=== PATIENT | female | born 1965 | race Caucasian/White ===

== ENCOUNTER → 2017-08-04 | Outpatient (CLI) | payer BC ==
--- NOTE | 2017-08-05 11:10 | MM ---
Reason for exam: screening (asymptomatic). Last mammogram was performed 1 year ago. History: Patient is postmenopausal, history of other cancer, and is nulliparous. Family history of breast cancer in maternal grandmother and breast cancer in maternal aunt. Took hormonal contraceptives for 14 years 5 months beginning at age 33. Physical Findings: A clinical breast exam by your physician is recommended on an annual basis and results should be correlated with mammographic findings. MG Screening Mammo w CAD Bilateral CC and MLO view(s) were taken. Prior study comparison: August 02, 2016, bilateral MG screening mammo w CAD. July 31, 2015, bilateral MG screening mammo w CAD. The breast tissue is heterogeneously dense. This may lower the sensitivity of mammography. Finding: There are typically benign calcifications in the left breast. No significant changes in finding since August 02, 2016 and July 31, 2015. ASSESSMENT: Benign, BI-RAD 2 RECOMMENDATION: Routine screening mammogram of both breasts in 1 year.
== END | disposition home or self-care (01) ==
LOC: RADMAMWWP 08:15
PROVIDERS: ATTEND Obstetrics & Gynecology
DX: Z12.31 Encounter for screening mammogram for malignant neoplasm of breast (principal); Z80.3 Family history of malignant neoplasm of breast

== ENCOUNTER → 2018-08-18 | Outpatient (CLI) | payer BC ==
--- NOTE | 2018-08-18 12:09 | MM ---
Reason for exam: screening (asymptomatic). Last mammogram was performed 1 year ago. History: Patient is postmenopausal, history of other cancer, and is nulliparous. Family history of breast cancer in maternal grandmother and breast cancer in maternal aunt. Took hormonal contraceptives for 14 years 5 months beginning at age 33. Physical Findings: A clinical breast exam by your physician is recommended on an annual basis and results should be correlated with mammographic findings. MG Screening Mammo w CAD Bilateral CC and MLO view(s) were taken. XCCL view(s) were taken of the left breast. Prior study comparison: August 04, 2017, bilateral MG screening mammo w CAD. August 02, 2016, bilateral MG screening mammo w CAD. The breast tissue is heterogeneously dense. This may lower the sensitivity of mammography. Benign calcifications in the left breast. No significant changes when compared with prior studies. ASSESSMENT: Benign, BI-RAD 2 RECOMMENDATION: Routine screening mammogram of both breasts in 1 year.
== END | disposition home or self-care (01) ==
LOC: RADMAMWWP 07:07
PROVIDERS: ATTEND Obstetrics & Gynecology
DX: Z12.31 Encounter for screening mammogram for malignant neoplasm of breast (principal)
CPT/HCPCS: 77067

== ENCOUNTER → 2019-09-18 | Outpatient (CLI) | payer OTHER ==
--- NOTE | 2019-09-19 15:02 | MM ---
Reason for exam: screening (asymptomatic). Last mammogram was performed 1 year and 1 month ago. History: Patient is postmenopausal, history of other cancer, and is nulliparous. Family history of breast cancer in maternal grandmother and breast cancer in maternal aunt. Took hormonal contraceptives for 14 years 5 months beginning at age 33. Physical Findings: A clinical breast exam by your physician is recommended on an annual basis and results should be correlated with mammographic findings. MG 3D Screening Mammo W/Cad Bilateral CC and MLO view(s) were taken. Prior study comparison: August 18, 2018, bilateral MG screening mammo w CAD. August 04, 2017, bilateral MG screening mammo w CAD. The breast tissue is heterogeneously dense. This may lower the sensitivity of mammography. No suspicious abnormality. Sternalis muscle incidentally noted bilaterally. ASSESSMENT: Negative, BI-RAD 1 RECOMMENDATION: Routine screening mammogram of both breasts in 1 year.
== END | disposition home or self-care (01) ==
LOC: RADMAMWWP 07:20
PROVIDERS: ATTEND Obstetrics & Gynecology
DX: Z12.31 Encounter for screening mammogram for malignant neoplasm of breast (principal)
CPT/HCPCS: 77063; 77067

== ENCOUNTER → 2019-10-31 | Outpatient (CLI) | payer OTHER ==
--- NOTE | 2019-10-31 08:37 | US ---
EXAMINATION TYPE: US pelvis complete transvag DATE OF EXAM: 10/31/2019 COMPARISON: Pelvic ultrasound December 17, 2015 CLINICAL HISTORY: N95.0 Post Menopausal Bleeding. PMB TECHNIQUE: Transvaginal (TV) and Transabdominal (TA) . Transabdominal sonographic images of the pel vis were acquired. Transvaginal sonographic images were medically necessary to better assess the fol lowing anatomy: endometrium Date of LMP: unknown EXAM MEASUREMENTS: Uterus: 5.7 x 2.3 x 3.2 cm Endometrial Stripe: 0.2 cm Right Ovary: unable to visualize Left Ovary: unable to visualize 1. Uterus: Anteverted calcifications noted, possible hypoechoic area within cervix = 0.8 x 1.0cm 2. Endometrium: appears wnl 3. Right Ovary: Obscured by overlying bowel gas 4. Left Ovary: Obscured by overlying bowel gas 5. Bilateral Adnexa: appears wnl 6. Posterior cul-de-sac: wnl IMPRESSION: Central 9 mm hypoechoic area within cervix in which mass or neoplasm cannot be excluded. Correlate with Pap smear advised. No suspicious endometrial thickening. Heterogeneous uterus without definitive focal fibroid.
== END | disposition home or self-care (01) ==
LOC: RADUSWWP 07:31
PROVIDERS: ATTEND Obstetrics & Gynecology
DX: N95.0 Postmenopausal bleeding (principal); R93.41 Abnormal radiologic findings on diagnostic imaging of renal pelvis, ureter, or bladder
CPT/HCPCS: 76830; 76856

== ENCOUNTER → 2020-07-04 | Outpatient (CLI) | payer OTHER | END | disposition home or self-care (01) | LOC: LABWHC1 08:34 | PROVIDERS: ATTEND Internal Medicine | DX: J06.9 Acute upper respiratory infection, unspecified (principal); Z20.828 Contact with and (suspected) exposure to other viral communicable diseases | CPT/HCPCS: U0003; C9803 ==

== ENCOUNTER → 2020-11-26 | Outpatient (CLI) | payer OTHER ==
--- NOTE | 2020-11-27 11:12 | MM ---
Reason for exam: screening (asymptomatic). Last mammogram was performed 1 year and 2 months ago. History: Patient is postmenopausal, history of other cancer, and is nulliparous. Family history of breast cancer in maternal grandmother and breast cancer in maternal aunt. Took hormonal contraceptives for 14 years 5 months beginning at age 33. Physical Findings: A clinical breast exam by your physician is recommended on an annual basis and results should be correlated with mammographic findings. MG 3D Screening Mammo W/Cad Bilateral CC and MLO view(s) were taken. Prior study comparison: September 18, 2019, bilateral MG 3d screening mammo w/cad. August 18, 2018, bilateral MG screening mammo w CAD. The breast tissue is extremely dense which could obscure a lesion on mammography. There is no discrete abnormality. ASSESSMENT: Negative, BI-RAD 1 RECOMMENDATION: Routine screening mammogram of both breasts in 1 year. Some consider ultrasound surveillance with extremely dense fibroglandular tissue.
== END | disposition home or self-care (01) ==
LOC: RADMAMWWP 07:58
PROVIDERS: ATTEND Obstetrics & Gynecology
DX: Z12.31 Encounter for screening mammogram for malignant neoplasm of breast (principal)
CPT/HCPCS: 77063; 77067

== ENCOUNTER → 2020-12-04 | Outpatient (CLI) | payer OTHER ==
--- NOTE | 2020-12-04 17:55 | BD ---
EXAMINATION TYPE: Axial Bone Density DATE OF EXAM: 12/04/2020 COMPARISON: 10.16.2015 CLINICAL HISTORY: 55 YR OLD FEMALE.....ICD-10 CODE: N95.1 POST MENOPAUSAL Height: 64.8 Weight: 157 FRAX RISK QUESTIONS: History of Fracture in Adulthood: YES RISK FACTORS HISTORY OF: HX OF ANKLE BREAK AN ADULT Family History of Osteoporosis: YES, MOTHER AND SISTER Active: YES Postmenopausal woman: YES, AT 48 YRS OLD Hyperparathyroidism: NO Adrenal Insufficiency: NO MEDICATIONS: Prednisone : ONLY WITH ILLNESS Additional Medications: CALCIUM AND VIT D...ON AND OFF Additional History: NOTHING ADDITIONAL TO NOTE EXAM MEASUREMENTS: Bone mineral densitometry was performed using the [employer] System. Bone mineral density as measured about the Lumbar spine is: ----- L1-L4(G/cm2): 1.455 T Score Values are as follows: ----- L1: 1.9 ----- L2: 1.6 ----- L3: 3.1 ----- L4: 2.2 ----- L1-L4: 2.3 Bone mineral density has: Increased 4.2% since study of: 10.16.2015 Bone mineral density about the R hip (g/cm2): 1.165 Bone mineral density about the L hip (g/cm2): 1.128 T Score values are as follows: -----R Neck: 0.1 -----L Neck: 0.2 -----R Total: 1.2 -----L Total: 1.0 Bone mineral density has: Decreased -6.9% since study of: 10.16.2015 FRAX%s: THERE IS A 9.1% CHANCE FOR A MAJOR OSTEOPOROTIC FX AND A 0.2% FOR HIP.....PROBABILITY FOR F X IN 10 YRS TIME IMPRESSION: Normal (Values between +1 and -1 indicate normal bone mass). Consider repeating this study in 5 year s or sooner if there is some new clinical indication. NOTE: T-SCORE=SD OF THE YOUNG ADULT MEAN.
== END | disposition home or self-care (01) ==
LOC: RADBDWWP 07:55
PROVIDERS: ATTEND Obstetrics & Gynecology
DX: N95.1 Menopausal and female climacteric states (principal)
CPT/HCPCS: 77080

== ENCOUNTER → 2022-01-05 | Outpatient (CLI) | payer OTHER ==
--- NOTE | 2022-01-07 14:28 | MM ---
Reason for exam: screening (asymptomatic). Last mammogram was performed 1 year and 1 month ago. History: Patient is postmenopausal, history of other cancer, and is nulliparous. Family history of breast cancer in maternal grandmother and breast cancer in maternal aunt. Took hormonal contraceptives for 14 years 5 months beginning at age 33. Physical Findings: A clinical breast exam by your physician is recommended on an annual basis and results should be correlated with mammographic findings. MG 3D Screening Mammo W/Cad Bilateral CC and MLO view(s) were taken. Prior study comparison: November 26, 2020, bilateral MG 3d screening mammo w/cad. September 18, 2019, bilateral MG 3d screening mammo w/cad. The breast tissue is heterogeneously dense. This may lower the sensitivity of mammography. There is no discrete abnormality. No significant changes when compared with prior studies. ASSESSMENT: Negative, BI-RAD 1 RECOMMENDATION: Routine screening mammogram of both breasts in 1 year.
== END | disposition home or self-care (01) ==
LOC: RADMAMWWP 07:25
PROVIDERS: ATTEND Obstetrics & Gynecology
DX: Z12.31 Encounter for screening mammogram for malignant neoplasm of breast (principal); Z80.3 Family history of malignant neoplasm of breast; Z78.0 Asymptomatic menopausal state
CPT/HCPCS: 77063; 77067

== ENCOUNTER → 2023-10-21 | Outpatient (CLI) | payer OTHER ==
--- NOTE | 2023-10-21 12:22 | XR ---
EXAMINATION TYPE: XR cervical spine w flex/ext DATE OF EXAM: 10/21/2023 10:33 AM CLINICAL INDICATION:Female, 58 years old with history of M54.2 CERVICALGIA; [facility] COMPARISON: None TECHNIQUE: The cervical spine was imaged in frontal, lateral, odontoid and bilateral oblique. FINDINGS: The osseous structures show normal alignment without evidence of an acute fracture. Mild degeneration with osteophyte formation of the vertebral bodies and mild facet and uncovertebral joint arthropathy . Pedicles are intact. Soft tissues are within normal limits. The odontoid appears intact. No abnorm al alignment on bending flexion views. 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 IMPRESSION: 1. No fracture or dislocation. 2. Mild degenerative disc disease changes of the cervical spine.
--- NOTE | 2023-10-21 12:23 | XR ---
EXAMINATION TYPE: XR thoracic spine 2V DATE OF EXAM: 10/21/2023 10:33 AM CLINICAL INDICATION:Female, 58 years old with history of M54.6 PAIN IN THORACIC SPINE; [facility] COMPARISON: None TECHNIQUE: XR thoracic spine 2V views of the thoracic spine in Frontal and lateral projections. FINDINGS: No evidence of acute fracture. There is scattered multilevel disk space narrowing without loss of ve rtebral body height. There is normal alignment of the thoracic vertebral bodies. Scattered osteophyte formation along the anterior and lateral aspects of the vertebral bodies. Neural foramen are patent given limitations of this exam. Spinal canal appears patent. IMPRESSION: No acute osseous pathology.
== END | disposition home or self-care (01) ==
LOC: RADXRWHC 09:42
PROVIDERS: ATTEND Internal Medicine
DX: M50.30 Other cervical disc degeneration, unspecified cervical region (principal); M54.6 Pain in thoracic spine
CPT/HCPCS: 72052; 72070

== ENCOUNTER → 2023-12-07 | Outpatient (CLI) | payer BC ==
--- NOTE | 2023-12-07 09:57 | US ---
EXAMINATION TYPE: US liver DATE OF EXAM: 12/07/2023 COMPARISON: NONE CLINICAL INDICATION: Female, 58 years old with history of R74.8 ABNORMAL LEVELS OF OTHER SERUM ENZYME S; elevated LFTs, no symptoms TECHNIQUE: Multiple sonographic images of the right upper quadrant are obtained. FINDINGS: EXAM MEASUREMENTS: Liver Length: 12.9 cm Gallbladder Wall: 0.2 cm CBD: 0.5 cm Right Kidney: 9.1 x 3.3 x 4.3 cm Pancreas: Suboptimal visualization of the pancreatic tail due to shadowing from bowel gas. Visualize d portions within normal limits. Liver: wnl Gallbladder: wnl Evidence for sonographic Otero's sign: no CBD: wnl Right Kidney: wnl IMPRESSION: No gallstones or biliary ductal dilatation. Overall normal, homogeneous appearance to the liver.
== END | disposition home or self-care (01) ==
LOC: RADUSWWP 06:49
PROVIDERS: ATTEND Internal Medicine
DX: R74.8 Abnormal levels of other serum enzymes (principal)
CPT/HCPCS: 76705

== ENCOUNTER → 2024-01-12 | Outpatient (CLI) | payer BC ==
--- NOTE | 2024-01-12 14:49 | MM ---
Reason for Exam: Screening (asymptomatic). Last screening mammogram was performed 12 month(s) ago. Patient History: Menarche at age 13. Patient has no children. Postmenopausal. Other cancer. Hormonal Contraceptives, starting at age 33 for 14 years, 5 months. Maternal grandmother had breast cancer. Maternal aunt had breast cancer. Risk Values: Cristina 5 year model risk: 1.5%. NCI Lifetime model risk: 8.5%. Prior Study Comparison: 11/26/2020 Bilateral Screening Mammogram, [facility]. 01/05/2022 Bilateral Screening Mammogram, [facility]. 01/06/2023 Bilateral MG 3D screening mammo w/cad, [facility]. Tissue Density: The breast tissue is heterogeneously dense. This may lower the sensitivity of mammography. Findings: Analyzed By CAD. There is no suspicious group of microcalcifications or new suspicious mass. Overall Assessment: Negative, BI-RAD 1 Management: Screening Mammogram of both breasts in [address] [facility] will attempt to contact patient to return for supplemental views and ultrasound if indicated. Patient should continue monthly self-breast exams. A clinical breast exam by your physician is recommended on an annual basis. This exam should not preclude additional follow-up of suspicious palpable abnormalities. Note on Cristina scores and lifetime risk: 1. A Cristina score greater than 3% is considered moderate risk. If this is the case, consider specialist referral to assess eligibility for a risk reducing agent. 2. If overall lifetime risk for the development of breast cancer is 20% or higher, the patient may qualify for future screening with alternating mammogram and breast MRI. Electronically signed and approved by: Emmanuel Bates DO
== END | disposition home or self-care (01) ==
LOC: RADMAMWWP 08:02
PROVIDERS: ATTEND Internal Medicine
DX: Z12.31 Encounter for screening mammogram for malignant neoplasm of breast (principal); M54.6 Pain in thoracic spine; M54.2 Cervicalgia; Z78.0 Asymptomatic menopausal state; Z80.3 Family history of malignant neoplasm of breast
CPT/HCPCS: 77063; 77067

== ENCOUNTER → 2024-12-18 | Outpatient (CLI) | payer BC ==
--- NOTE | 2024-12-18 15:23 | US ---
EXAMINATION TYPE: US arterial LE single level DATE OF EXAM: 12/18/2024 2:47 PM COMPARISONS: None. CLINICAL INDICATION: Female, 59 years old with history of M79.605 LEFT LEG PAIN R06.09 DYSPNEA; Left thigh pain that radiates to lower leg since April. TECHNIQUE: Systolic pressures were taken of the upper and lower extremity arteries with ankle-brachia l indices and toe brachial indices calculated bilaterally. History of: Smoker: No Hypertension: No Diabetic: No Hyperlipidemia: Yes TIA/CVA: No Previous Vascular Surgery: No CAD: No NV: No Vascular Ulcers: No Claudication: No Gangrene: No FINDINGS: Doppler Waveforms: Right: Left: Multiphasic Brachial Artery systolic pressure: Right: 125 Left: 124 Posterior Tibial artery systolic pressure: Right: 134 Left: 134 Dorsalis Pedis artery systolic pressure: Right: 125 Left: 138 Ankle-Brachial Indices: Right: 1.1 Left: 1.1 IMPRESSION: AYLIN: Right: Normal 0.9 - 1.4, Recommendation: None Left: Normal 0.9 - 1.4, Recommendation: None [facility], , 12/18/2024 3:21 PM
--- NOTE | 2024-12-18 15:23 | US ---
EXAMINATION TYPE: US venous doppler duplex LE LT DATE OF EXAM: 12/18/2024 2:52 PM COMPARISON: NONE CLINICAL INDICATION: Female, 59 years old with history of M79.605 LEFT LEG PAIN R06.09 DYSPNEA; Left thigh pain radiating to lower leg since April, no redness or swelling, on aspirin, Pain TECHNIQUE: The lower extremity deep venous system is examined utilizing real time linear array sonog ruby with graded compression, color doppler sonography, and spectral doppler. SIDE PERFORMED: Left FINDINGS: VESSELS IMAGED: Common Femoral Vein Deep Femoral Vein Greater Saphenous Vein * Femoral Vein Popliteal Vein Small Saphenous Vein * Proximal Calf Veins (* superficial vessels) Left Leg: Negative for DVT, Color Doppler imaging shows patency of the vessels. Spectral waveforms a re within normal limits. IMPRESSION: No ultrasound evidence for deep venous thrombosis. [facility], , 12/18/2024 3:21 PM
== END | disposition home or self-care (01) ==
LOC: RADUSWWP 14:04
PROVIDERS: ATTEND Internal Medicine
DX: M79.605 Pain in left leg (principal); R06.09 Other forms of dyspnea; E78.5 Hyperlipidemia, unspecified
CPT/HCPCS: 93922

== ENCOUNTER → 2025-03-25 | Outpatient (CLI) | payer BC ==
--- NOTE | 2025-03-25 08:26 | BD ---
EXAMINATION TYPE: Axial Bone Density DATE OF EXAM: 03/25/2025 CLINICAL HISTORY: 59 years old Female. ICD-10 CODE: M85.80 OSTEOPENIA , Additional History: Height: 64.5 Weight: 166 FRAX RISK QUESTIONS: History of Fracture in Adulthood: yes Secondary Osteoporosis: RISK FACTORS HISTORY OF: MEDICATIONS: EXAM MEASUREMENTS: Bone mineral densitometry was performed using the [employer] System. Bone mineral density as measured about the Lumbar spine is: ----- L1-L4(G/cm2): 1.362 T Score Values are as follows: ----- L1: 0.8 ----- L2: 1.1 ----- L3: 2.0 ----- L4: 1.6 ----- L1-L4: 1.5 Z Score Values are as follows: ----- L1: 1.6 ----- L2: 2.0 ----- L3: 2.9 ----- L4: 2.5 ----- L1-L4: 2.3 Bone mineral density has: Decreased -6.4% since study of: 12-04-20 Bone mineral density about the R hip (g/cm2): 1.133 Bone mineral density about the L hip (g/cm2): 1.078 T Score values are as follows: -----R Neck: -0.2 -----L Neck: -0.2 -----R Total: 1.0 -----L Total: 0.6 Z Score values are as follows: -----R Neck: 0.8 -----L Neck: 0.8 -----R Total: 1.6 -----L Total: 1.2 Bone mineral density has: Decreased -3.7% since study of: 12-04-20 FRAX%s: The graph provided illustrates a 10.7% chance for a major osteoporotic fx and a 0.3% chance f or the hips probability for fx in 10 years time. IMPRESSION: Normal (Values between +1 and -1 indicate normal bone mass). Consider repeating this study in 5 year s or sooner if there is some new clinical indication. NOTE: T-SCORE=SD OF THE YOUNG ADULT MEAN. [facility], , 03/25/2025 8:24 AM
--- NOTE | 2025-03-25 08:30 | MM ---
Reason for Exam: Screening (asymptomatic). Last mammogram was performed 1 year(s) and 3 month(s) ago. Patient History: Menarche at age 13. Patient has no children. Postmenopausal. Other cancer. Hormonal Contraceptives, starting at age 33 for 14 years, 5 months. Maternal grandmother had breast cancer. Maternal aunt had breast cancer. Risk Values: Cristina 5 year model risk: 1.5%. NCI Lifetime model risk: 8.3%. Prior Study Comparison: 01/05/2022 Bilateral Screening Mammogram, [facility]. 01/06/2023 Bilateral MG 3D screening mammo w/cad, [facility]. 01/12/2024 Bilateral MG 3D screening mammo w/cad, [facility]. Tissue Density: The breasts are heterogeneously dense, which may obscure small masses. Findings: Analyzed By CAD. There is no suspicious group of microcalcifications or new suspicious mass in either breast. Overall Assessment: Negative, BI-RAD 1 Management: Screening Mammogram of both breasts in 1 year. Some advise annual bilateral breast ultrasound surveillance in patients with background dense tissue. Patient should continue monthly self-breast exams. A clinical breast exam by your physician is recommended on an annual basis. This exam should not preclude additional follow-up of suspicious palpable abnormalities. Note on Cristina scores and lifetime risk: 1. A Cristina score greater than 3% is considered moderate risk. If this is the case, consider specialist referral to assess eligibility for a risk reducing agent. 2. If overall lifetime risk for the development of breast cancer is 20% or higher, the patient may qualify for future screening with alternating mammogram and breast MRI. [facility], , 03/25/2025 8:27 AM. Electronically signed and approved by: Teo Lynch M.D.
== END | disposition home or self-care (01) ==
LOC: RADMAMWWP 07:44
PROVIDERS: ATTEND Internal Medicine
DX: Z12.31 Encounter for screening mammogram for malignant neoplasm of breast (principal); M85.80 Other specified disorders of bone density and structure, unspecified site; R92.333 Mammographic heterogeneous density, bilateral breasts; Z78.0 Asymptomatic menopausal state; Z80.3 Family history of malignant neoplasm of breast; Z92.0 Personal history of contraception
CPT/HCPCS: 77063; 77067; 77080